=== PATIENT | female | born 1990 ===

== ENCOUNTER 2021-02-19 12:47 | Emergency (ER) | payer MEDICAID ==
--- NOTE | 2021-02-19 18:15 | Event Note ---
ED Screening Note Date of service: 02/19/21 Time: 18:12 ED Screening Note: 30-year-old female presents to the ER today with complaints of vaginal spotting, onset this morning. She states that she took several positive home test 2 days ago. Her last menstrual cycle was January 10, 2021. Patient states that when her spotting started this morning she went to the urgent care. She states that they did a pelvic and noticed that she did have some mild blood on exam and recommended she come to the ER. She was also diagnosed with a UTI at urgent care and was started on antibiotics but she does not recall the name of the antibiotics. She denies any associate abdominal pain or back pain. She is G2, P1 Ab0. This initial assessment/diagnostic orders/clinical plan/treatment(s) is/are subject to change based on patients health status, clinical progression and re- assessment by fellow clinical providers in the ED. Further treatment and workup at subsequent clinical providers discretion. Patient/guardian urged not to elope from the ED as their condition may be serious if not clinically assessed and managed. Initial orders include: CBC, CMP, quant hCG, Rh type
[2021-02-19 18:36] LABS: Basophils # (Auto) 0.1 K/mm3 (0.0-0.1); Basophils % (Auto) 1.3 % (0.0-1.8); Eosinophils # (Auto) 0.1 K/mm3 (0.0-0.4); Eosinophils % (Auto) 1.3 % (0.0-4.3); Hemoglobin 12.1 gm/dl (10.1-14.3); Lymphocytes # (Auto) 2.6 K/mm3 (1.2-5.4); Lymphocytes % (Auto) 32.5 % (13.4-35.0); Mean Corpuscular HGB Conc 35 % (30-34); Mean Corpuscular Volume 88 fl (79-97); Monocytes # (Auto) 0.5 K/mm3 (0.0-0.8); Monocytes % (Auto) 6.3 % (0.0-7.3); Platelet Count 216 K/mm3 (140-440); Red Blood Count 3.97 M/mm3 (3.65-5.03); Red Cell Distribution Width 16.8 % (13.2-15.2)
[2021-02-19 18:59] LABS: Alanine Aminotransferase 29 units/L (7-56); Albumin 4.6 g/dL (3.9-5); Blood Urea Nitrogen 9 mg/dL (7-17); Hemolysis Index 7
[2021-02-19 19:01] LABS: BUN/Creatinine Ratio 15
[2021-02-19 19:25] LABS: Bacteria,Urine 2+ /HPF (Negative); Bilirubin,Urine NEG (Negative); Blood,Urine LG (Negative); Color,Urine Yellow (Yellow); Mucus,Urine FEW /HPF; Protein,Urine <15 mg/dL mg/dL (Negative); Urobilinogen,Urine < 2.0 mg/dL (<2.0)
--- NOTE | 2021-02-19 21:33 | Emergency Department Report ---
ED General Adult HPI - General Chief complaint: Vaginal Bleeding Stated complaint: POSSIBLE 2 WKS BLEEDING Time Seen by Provider: 02/19/21 18:48 Source: patient Mode of arrival: Ambulatory Limitations: No Limitations - History of Present Illness Initial comments: 30-year-old female presents to the ER today with complaints of vaginal spotting, onset this morning. She states that she took several positive home test 2 days ago. Her last menstrual cycle was January 10, 2021. Patient states that when her spotting started this morning she went to the urgent care. She states that they did a pelvic and noticed that she did have some mild blood on exam and recommended she come to the ER. She was also diagnosed with a UTI at urgent care and was started on antibiotics but she does not recall the name of the antibiotics. She denies any associate abdominal pain or back pain. She is G2, . - Related Data Allergies Allergy/AdvReac Type Severity Reaction Status Date / Time No Known Allergies Allergy Verified 02/19/21 14:37 ED Review of Systems ROS: Stated complaint: POSSIBLE 2 WKS BLEEDING Other details as noted in HPI Constitutional: denies: chills, fever, malaise Respiratory: denies: cough, shortness of breath Cardiovascular: denies: chest pain Gastrointestinal: denies: abdominal pain, nausea, vomiting Genitourinary: discharge, abnormal menses. denies: urgency, dysuria, frequency, hematuria, dyspareunia Musculoskeletal: denies: back pain Skin: denies: lesions, change in color Neurological: denies: headache Hematological/Lymphatic: denies: swollen glands ED Past Medical Hx - Past Medical History Previous Medical History?: No - Surgical History Past Surgical History?: No - Social History Smoking Status: Never Smoker Substance Use Type: None ED Physical Exam - General Limitations: No Limitations General appearance: alert, in no apparent distress - Head Head exam: Present: atraumatic, normocephalic - Eye Eye exam: Present: normal appearance - ENT ENT exam: Present: mucous membranes moist - Respiratory Respiratory exam: Present: normal lung sounds bilaterally. Absent: respiratory distress - Cardiovascular Cardiovascular Exam: Present: regular rate, normal rhythm - GI/Abdominal GI/Abdominal exam: Present: soft, normal bowel sounds. Absent: distended, tenderness, guarding, rebound, rigid - Extremities Exam Extremities exam: Present: full ROM - Back Exam Back exam: Present: normal inspection. Absent: CVA tenderness (R), CVA tenderness (L) - Neurological Exam Neurological exam: Present: alert, oriented X3, normal gait - Psychiatric Psychiatric exam: Present: normal affect, normal mood - Skin Skin exam: Present: warm, dry, intact, normal color. Absent: rash ED Course Vital Signs 02/19/21 14:39 Temperature 98.5 F Pulse Rate 90 Respiratory 16 Rate Blood Pressure 145/91 O2 Sat by Pulse 99 Oximetry ED Medical Decision Making - Lab Data Result diagrams: 02/19/21 18:22 02/19/21 18:22 Lab Results 02/19/21 02/19/21 02/19/21 Range/Units 18:22 18:22 18:22 WBC 7.9 (4.5-11.0) K/mm3 RBC 3.97 (3.65-5.03) M/mm3 Hgb 12.1 (10.1-14.3) gm/dl Hct 35.0 (30.3-42.9) % MCV 88 (79-97) fl MCH 30 (28-32) pg MCHC 35 H (30-34) % RDW 16.8 H (13.2-15.2) % Plt Count 216 (140-440) K/mm3 Lymph % (Auto) 32.5 (13.4-35.0) % [place] % (Auto) 6.3 (0.0-7.3) % Eos % (Auto) 1.3 (0.0-4.3) % Baso % (Auto) 1.3 (0.0-1.8) % Lymph # (Auto) 2.6 (1.2-5.4) K/mm3 [place] # (Auto) 0.5 (0.0-0.8) K/mm3 Eos # (Auto) 0.1 (0.0-0.4) K/mm3 Baso # (Auto) 0.1 (0.0-0.1) K/mm3 Seg Neutrophils % 58.6 (40.0-70.0) % Seg Neutrophils # 4.6 (1.8-7.7) K/mm3 Sodium 137 (137-145) mmol/L Potassium 3.6 (3.6-5.0) mmol/L Chloride 100.5 (98-107) mmol/L Carbon Dioxide 22 (22-30) mmol/L Anion Gap 18 mmol/L BUN 9 (7-17) mg/dL Creatinine 0.6 (0.6-1.2) mg/dL Estimated GFR > 60 ml/min BUN/Creatinine Ratio 15 % Glucose 94 (65-100) mg/dL Calcium 10.0 (8.4-10.2) mg/dL Total Bilirubin 0.70 (0.1-1.2) mg/dL AST 19 (5-40) units/L ALT 29 (7-56) units/L Alkaline Phosphatase 50 (35-129) units/L Total Protein 8.2 (6.3-8.2) g/dL Albumin 4.6 (3.9-5) g/dL Albumin/Globulin Ratio 1.3 % HCG, Quant 189.3 H (0-4) mIU/mL Urine Color (Yellow) Urine Turbidity (Clear) Urine pH (5.0-7.0) Ur Specific [place] (1.003-1.030) Urine Protein (Negative) mg/dL Urine Glucose (UA) (Negative) mg/dL Urine Ketones (Negative) mg/dL Urine Blood (Negative) Urine Nitrite (Negative) Urine Bilirubin (Negative) Urine Urobilinogen (<2.0) mg/dL Ur Leukocyte Esterase (Negative) Urine WBC (Auto) (0.0-6.0) /HPF Urine RBC (Auto) (0.0-6.0) /HPF U Epithel Cells (Auto) (0-13.0) /HPF Urine Bacteria (Auto) (Negative) /HPF Urine Mucus /HPF Urine Yeast (Budding) /HPF Blood Type 02/19/21 02/19/21 Range/Units 18:22 19:10 WBC (4.5-11.0) K/mm3 RBC (3.65-5.03) M/mm3 Hgb (10.1-14.3) gm/dl Hct (30.3-42.9) % MCV (79-97) fl MCH (28-32) pg MCHC (30-34) % RDW (13.2-15.2) % Plt Count (140-440) K/mm3 Lymph % (Auto) (13.4-35.0) % [place] % (Auto) (0.0-7.3) % Eos % (Auto) (0.0-4.3) % Baso % (Auto) (0.0-1.8) % Lymph # (Auto) (1.2-5.4) K/mm3 [place] # (Auto) (0.0-0.8) K/mm3 Eos # (Auto) (0.0-0.4) K/mm3 Baso # (Auto) (0.0-0.1) K/mm3 Seg Neutrophils % (40.0-70.0) % Seg Neutrophils # (1.8-7.7) K/mm3 Sodium (137-145) mmol/L Potassium (3.6-5.0) mmol/L Chloride (98-107) mmol/L Carbon Dioxide (22-30) mmol/L Anion Gap mmol/L BUN (7-17) mg/dL Creatinine (0.6-1.2) mg/dL Estimated GFR ml/min BUN/Creatinine Ratio % Glucose (65-100) mg/dL Calcium (8.4-10.2) mg/dL Total Bilirubin (0.1-1.2) mg/dL AST (5-40) units/L ALT (7-56) units/L Alkaline Phosphatase (35-129) units/L Total Protein (6.3-8.2) g/dL Albumin (3.9-5) g/dL Albumin/Globulin Ratio % HCG, Quant (0-4) mIU/mL Urine Color Yellow (Yellow) Urine Turbidity Slightly-cloudy (Clear) Urine pH 6.0 (5.0-7.0) Ur Specific [place] 1.011 (1.003-1.030) Urine Protein <15 mg/dl (Negative) mg/dL Urine Glucose (UA) Neg (Negative) mg/dL Urine Ketones Neg (Negative) mg/dL Urine Blood Lg (Negative) Urine Nitrite Neg (Negative) Urine Bilirubin Neg (Negative) Urine Urobilinogen < 2.0 (<2.0) mg/dL Ur Leukocyte Esterase Lg (Negative) Urine WBC (Auto) 67.0 H (0.0-6.0) /HPF Urine RBC (Auto) 8.0 (0.0-6.0) /HPF U Epithel Cells (Auto) 8.0 (0-13.0) /HPF Urine Bacteria (Auto) 2+ (Negative) /HPF Urine Mucus Few /HPF Urine Yeast (Budding) 1+ /HPF Blood Type B POSITIVE - Radiology Data ULTRASOUND OBSTETRIC INDICATION / CLINICAL INFORMATION: vag spotting; +home preg test; last [facility] 01/10/21. Clinical Gestational Age (GA): 5.5 weeks.days TECHNIQUE: Transabdominal. COMPARISON: None available. FINDINGS: The uterus measures 7.8 x 3.8 x 5.6 cm. Endometrial thickness measures 18.7 mm. No intrauterine is visualized at this time. EMBRYO/FETUS: None. ADNEXA: No significant abnormality of the left. The right ovary is not well- visualized on this exam. FREE FLUID: None. ADDITIONAL FINDINGS: None. IMPRESSION: 1. Increased endometrial thickness without definite evidence of intrauterine at this time. This is likely secondary to early dates. Clinical and ultrasound follow-up as clinically indicated. - Medical Decision Making 30-year-old female presents to the ER today with complaints of vaginal spotting, onset this morning. She states that she took several positive home test 2 days ago. Her last menstrual cycle was January 10, 2021. Patient states that when her spotting started this morning she went to the urgent care. She states that they did a pelvic and noticed that she did have some mild blood on exam and recommended she come to the ER. She was also diagnosed with a UTI at urgent care and was started on antibiotics but she does not recall the name of the antibiotics. She denies any associate abdominal pain or back pain. She is G2, . Upon further questioning, patient states that she did have STD testing performed at the urgent care and given that she had a recent infection with trichomonas, the provider from the urgent care was going to retreat her with metronidazole for this. She also states she was sent an antibiotic for UTI. UA shows elevated WBCs. CBC and CMP are without acute abnormalities. Beta-hCG noted to be 189.3. Ultrasound shows thickened endometrial stripe without definite IUP. Patient informed to follow-up here in the ED in 48 hours for repeat beta hCG level, sooner if she experiences any new or worsening symptoms. Patient verbalizes understanding. Her vitals are normal, she is well-appearing, she is stable for discharge home. Critical care attestation.: If time is entered above; I have spent that time in minutes in the direct care of this critically ill patient, excluding procedure time. ED Disposition Clinical Impression: Vaginal bleeding in Disposition: DC-01 TO HOME OR SELFCARE Is pt being admited?: No Condition: Stable Instructions: Vaginal Bleeding During , First Trimester, Activity Restriction During Referrals: [facility] [Provider Group] - 2-3 Days
--- NOTE | 2021-02-19 21:45 | Ultrasound Report ---
ULTRASOUND OBSTETRIC INDICATION / CLINICAL INFORMATION: vag spotting; +home preg test; last [facility] 01/10/21. Clinical Gestational Age (GA): 5.5 weeks.days TECHNIQUE: Transabdominal. COMPARISON: None available. FINDINGS: The uterus measures 7.8 x 3.8 x 5.6 cm. Endometrial thickness measures 18.7 mm. No intrauterine pregn jacques is visualized at this time. EMBRYO/FETUS: None. ADNEXA: No significant abnormality of the left. The right ovary is not well-visualized on this exam. FREE FLUID: None. ADDITIONAL FINDINGS: None. IMPRESSION: 1. Increased endometrial thickness without definite evidence of intrauterine at this time. This is likely secondary to early dates. Clinical and ultrasound follow-up as clinically indicated. Signer Name: Erich Willett MD Signed: 02/19/2021 9:40 PM Workstation Name: [id number]
[2021-02-19 22:37] VITALS: BP 125/77
== END 2021-02-19 23:00 | disposition home or self-care (01) ==
LOC: ED 12:47
DX: O20.8 Other hemorrhage in early pregnancy (principal); Z3A.01 Less than 8 weeks gestation of pregnancy
CPT/HCPCS: 36415; 76801; 80053; 81001; 84702; 85025; 86900; 86901; 87086